=== PATIENT | male | born 1970 | race Caucasian/White ===

== ENCOUNTER 2022-01-01 09:42 | Emergency (ER) | payer OTHER ==
[~2022-01-01] VITALS: Ht 193 cm; Wt 115.2 kg
[2022-01-01 09:44] VITALS: BP 146/92
--- NOTE | 2022-01-01 09:59 | NUR ---
51/M WALKED IN C/O COUGH, RUNNY NOSE AND BODY ACHE ACCOMPANIED BY FEVER ONSET 4 DAYS. PT STATES TESTING POSITIVE FOR FLU. PT ALSO COMPLAIN OF LOSS OF APPETITE AND WEAKNESS. AFEBRILE AT TRIAGE. STATES TAKING IBUPROFEN AT 4AM TODAY. PMH: DENIES
--- NOTE | 2022-01-01 09:59 | NUR ---
PT AMB TO BED 3.
[2022-01-01] MEDS ORDERED: TRAM-748 PO (10:24)
[2022-01-01] MEDS ORDERED: TAM75 PO (10:24)
== END 2022-01-01 10:40 | disposition home or self-care (01) ==
LOC: MED 09:42
DX: J10.1 Influenza due to other identified influenza virus with other respiratory manifestations (principal)
CPT/HCPCS: 99283